=== PATIENT | male | born 1995 | race Caucasian/White ===

== ENCOUNTER 2016-10-22 15:28 | Emergency (ER) | payer OTHER ==
[~2016-10-22] VITALS: Ht 177.8 cm; Wt 109.0 kg
[2016-10-22 15:30] VITALS: BP 137/84
[2016-10-22] MEDS ORDERED: IBUPROFEN 200 MG TABLET PO ONE (15:50)
[2016-10-22] MEDS ORDERED: ACETAMINOPHEN 325 MG TABLET PO ONE (16:00)
[2016-10-22] MEDS ORDERED: IBUPROFEN 200 MG TABLET ONE (16:12)
[2016-10-22] MEDS ORDERED: ACETAMINOPHEN 325 MG TABLET ONE (16:12)
== END 2016-10-22 16:57 | disposition home or self-care (01) ==
LOC: ED 16:51
DX: J20.8 Acute bronchitis due to other specified organisms (principal)
CPT/HCPCS: 71020; 99284